=== PATIENT | female | born 1960 | race Caucasian/White ===

== ENCOUNTER 2016-11-06 02:26 | Day surgery (SDC) | payer OTHER ==
[2016-11-06] VITALS (16 sets, daily range): BP systolic 110–128; BP diastolic 45–78; PULSE 65–84; RESP 15–27; O2SAT 94–100
[~2016-11-06] VITALS: Ht 175.3 cm; Wt 65.5 kg
[~2016-11-06 02:26] MED LIST: ASPI-973 PO; CHOL200047 PO; DILT-17 PO; ESTR1PAT82 TRANSDERM; METO25TA99 PO; MULT-1018 PO; OMEG-38 PO
[2016-11-06] MEDS ORDERED: Phenylephrine/NS 100 mCg/mL 10 mL Syringe IVPUSH ONE (02:27)
[2016-11-06] MEDS ORDERED: Dexamethasone 4 mg/mL Inj ONE (02:27)
[2016-11-06] MEDS ORDERED: Neostigmine 1 mg/mL 10 mL Inj ONE (02:27)
[2016-11-06] MEDS ORDERED: Rocuronium 10 mg/mL 5 mL Inj ONE (02:27)
[2016-11-06] MEDS ORDERED: Protamine Sulfate 10 mg/mL 5 mL Inj ONE ×2 (02:27→10:49)
[2016-11-06] MEDS ORDERED: Glycopyrrolate 0.2 MG/ML 1mL Inj ONE (02:27)
[2016-11-06] MEDS ORDERED: MetoCLOpramide 5 mg/mL 2 mL Inj ONE (02:27)
[2016-11-06] MEDS ORDERED: EPHEDrine/NS 5 mg/mL 5 mL Syringe ONE (02:27)
[2016-11-06] MEDS ORDERED: Lidocaine PF 1% 30 mL Inj ONE (02:27)
[2016-11-06 06:37] LABS: BASOPHILS % (AUTO) 0.8 % (0-3); EOSINOPHILS % (AUTO) 2.3 % (0-5); MONOCYTES % (AUTO) 9.3 % (4-12); Mean Corpuscular Hemoglobin 30.9 pg (27.0-35.0); Mean Corpuscular Volume 89.1 fL (81-100); NEUTROPHILS % (AUTO) 51.3 % (40-74); Platelet Count 209 bil/L (150-400)
[2016-11-06 06:54] LABS: INR 1.03 ratio
--- NOTE | 2016-11-06 06:54 | NUR ---
Patient admitted for MELISSA/ atrial fib ablation under general anesthesia. Pre/ post procedure expectations and recovery explained to patient and spouse.She is accompanied by her .
[2016-11-06] MEDS ORDERED: RIVA20TA PO (07:10)
[2016-11-06] MEDS: 0.9% Sodium Chloride 1,000 ML IV SCH ×3 (07:27→21:53)
[2016-11-06] MEDS ORDERED: 0.9% Sodium Chloride 1,000 ML IV ONE (07:30)
[2016-11-06] MEDS ORDERED: Heparin 25,000 Unit/500 mL 0.45% NS Premix IV ONE (07:41)
[2016-11-06] MEDS ORDERED: Heparin 1,000 Unit/mL 10 mL Inj ONE (07:41)
--- NOTE | 2016-11-06 07:41 | PCM.HPANE ---
Patient Data Date of Service: Nov 06, 2016 Surgeon Admitting Provider: Attending Provider:Javid Noguera MD Primary Care Physician:Joey Drake MD Other Provider:Luis Fernando Newberry Anesthesia Reason for Visit Paroxysmal A-Fib Ht/WT & BMI Height (Feet): 5 Height (Inches): 9.50 Weight (Kilograms): 64.600 Body Mass Index 20.62 Allergies Coded Allergies: morphine (Verified Allergy, Intermediate, Rash,Itching,, 11/06/16) Past Anesthesia History Anesthesia History: Denies:: Abnormal Airway, Anesthesia Reactions, Difficult Intubation, Fam Anesthesia Reaction, Malignant Hyperthermia Diabetes History Hx Diabetes?: No MRSA MRSA: No Medications Hypertension Medication: Yes Home Meds Incl Beta Jazzmine: Yes Date Beta Jazzmine Taken: Nov 05, 2016 Previous Beta Jazzmine Dose >24: Previous Dose <24 Hours Reported Medications Rivaroxaban (Xarelto)20 Mg [id number] Mg PO QPM 11/06/16 Cholecalciferol (Vitamin D3) (Vitamin D3)2,000 Unit Capsule2,000 Unit PO DAILY 11/05/16 Multivitamin (Multi Vitamin Daily)1 Each Tablet1 Each PO DAILY 30 Days Ref 0 11/05/16 Metoprolol Succinate ER 25 Mg Tab.er.24h25 Mg PO QPM Ref 0 11/05/16 [place]-3/Dha/Epa/Fish Oil (Fish Oil 1,000 mg Softgel)1 Each Capsule1 Each PO DAILY 11/05/16 Estradiol 0.1 mg/24 hr Patch 1 Each Patch.tdwk1 Patch TRANSDERM 2x weekly Ref 0 patient takes friday/11/05/16 Discontinued Reported Medications Diltiazem ER 120 Mg Cap.er.[id number] Mg PO DAILY Ref 0 11/05/16 Aspirin 81 Mg Obnywx62 Mg PO DAILY Ref 0 11/05/16 History History of ENT Problems?: No Hx of Heart Problems?: Yes Cardiovascular History: Positive for:: Irregular Heartbeat (atrial fibrillation/paroxysmal) Denies:: Chest Pain Peripheral Vascular Valvular Heart Disease Hx of Respiratory Problem?: Yes Respiratory History: Positive for:: Dyspnea (when in atrial fib) Hx Neurologic Problems?: No Hx of GI Problems?: No Hx Musculoskeletal Problems?: No Hx of Psycho/Social Problems?: No Hx Surgeries?: Yes (multiple abdominal surgeries, colon resection) Hx Any Other Health Problems?: No Other History: Positive for:: Hospitalization History Blood Transfusions: Positive for:: Accept Blood Products? Blood Transfusions (1980) Denies:: Blood Transfuse Reaction Hx Alcohol Use: Yes (occassional)Hx Substance Use: No Stop/Bang Treated for Sleep Apnea?: No Do You Have a CPAP Machine?: No S-Snoring: Do You Snore Loudly: No T-Tired: feel tired, fatigued: No O-Obsered: Observed not breath: No P-Blood Pressure: treated: No B- Body Mass Index > 35 kg/m2: No A- Age over 50: Yes N- Neck Large Circumference: No G- Gender Male: No LYUBOV Risk Assessment: Low Risk, <3 Yes Risk Assessment Category Category 1A: Patient has history of documented sleep apnea, and HAS NOT received any narcotic, sedative or anesthesia administration during this stay. Category 1B: Patient has history of documented sleep apnea, and HAS received any narcotic , sedative or anesthesia administration during this stay Category 2: Patient has SUSPECTED Obstructive Sleep Apnea, and HAS received any narcotic , sedative or anesthesia administration during this stay. Category 3: Patient has SUSPECTED Obstructive Sleep Apnea and HAS NOT received narcotic, sedative or anesthesia administration during this stay. Category 4: Outpatient in Procedural Areas with known sleep apnea or who screen positive for High Risk via the STOP/BANG questionnaire. Exam Exam Vital Signs Vital Signs Date Time Temp Pulse Resp B/P Pulse Ox O2 Delivery O2 Flow Rate FiO2 11/06/16 06:44 36.5 65 27 114/72 97 Room Air General Appearance: Alert, Oriented X3, Cooperative, No Acute Distress HEENT/AIRWAY: MP 1 Lungs: Clear to Auscultation, Normal Air Movement Heart: Exam Unremarkable, Regular Rate/Rhythm, No Murmurs/Rubs/Gallops Meds/Labs/Diagnostics Labs Test 11/06/16 06:30 White Blood Count 3.9th/mm3 (3.8-10.1) Red Blood Count 4.85mil/mm3 (3.90-5.20) Hemoglobin 15.0g/dL (12.0-15.6) Hematocrit 43.2% (35.0-46.0) Mean Corpuscular Volume 89.1fL (81-100) Mean Corpuscular Hemoglobin 30.9pg (27.0-35.0) Mean Corpuscular Hemoglobin Concent 34.7% (32.0-37.0) Red Cell Distribution Width 12.4% (12.3-15.4) Platelet Count 209bil/L (150-400) Neutrophils (%) (Auto) 51.3% (40-74) Lymphocytes (%) (Auto) 36.0% (14-46) Monocytes (%) (Auto) 9.3% (4-12) Eosinophils (%) (Auto) 2.3% (0-5) Basophils (%) (Auto) 0.8% (0-3) Prothrombin Time 11.0sec (8.1-12.5) Prothromb Time International Ratio 1.03ratio Sodium Level 139mEq/L (134-144) Potassium Level 3.9mEq/L (3.5-5.2) Chloride Level 102mEq/L (97-108) Carbon Dioxide Level 23mmol/L (18-29) Blood Urea Nitrogen 14mg/dL (6-24) Creatinine 0.60mg/dL (0.57-1.00) Estimat Glomerular Filtration Rate 147mL/min (>59) Glucose Level 99mg/dL (60-99) Calcium Level 8.6mg/dL (8.5-10.1) Plan Impression Patient chart reviewed, patient interviewed and anesthestic plan with risks, benefits, and alternatives discussed, and informed consent obtained. NPO Status: Appropriate ASA Physical Status: ASA2 Mod Systemic Disease Anesthetic Support Modalities: Arterial Line Anesthetic Plan: GA Bene/Risks/Altern/Consents: Yes HP Complete Prior to Induction: Yes Allan Lozano MD Nov 06, 2016 07:41
[2016-11-06] MEDS ORDERED: 0.9% Sodium Chloride 1,000 ML ONE (07:44)
[2016-11-06] MEDS ORDERED: Lactated Ringer's 1,000 ML IV ONE (08:03)
[2016-11-06] MEDS ORDERED: Heparin 5,000 Units/500 mL NS Premix IV ONE (08:54)
[2016-11-06] MEDS ORDERED: Ondansetron 2 mg/mL 2 mL Inj IVPUSH PRN ×2 (11:10→11:30)
[2016-11-06] MEDS ORDERED: Lactated Ringer's 1,000 ML IV SCH (11:30)
[2016-11-06] MEDS ORDERED: EPHEDrine Sulfate 50 mg/mL Inj IM PRN (11:30)
[2016-11-06] MEDS ORDERED: Lactated Ringer's 500 ML IV PRN (11:30)
[2016-11-06] MEDS ORDERED: Atropine 0.4 mg/mL Inj IVPUSH PRN (11:30)
[2016-11-06] MEDS ORDERED: EPHEDrine Sulfate 50 mg/mL Inj IVPUSH PRN (11:30)
[2016-11-06] MEDS ORDERED: hydrALAZINE 20 mg/mL Inj IVPUSH PRN (11:30)
[2016-11-06] MEDS ORDERED: HYDROmorphone 1 mg/mL Inj IVPUSH PRN (11:30)
[2016-11-06] MEDS ORDERED: fentaNYL-PF 50 mCg/mL 2 mL Inj IVPUSH PRN (11:30)
[2016-11-06] MEDS ORDERED: Phenylephrine 10,000 mCg/mL Inj IVPUSH PRN (11:30)
[2016-11-06] MEDS ORDERED: Labetalol 5 mg/mL 4 mL Inj IV PRN (11:30)
--- NOTE | 2016-11-06 14:38 | PROCED ---
[address] [address] PROCEDURE NOTE PATIENT: WILEY SY : 1960 MR#: [id number] ADMIT: 11/06/2016 JOB ID: [id number] DATE OF SERVICE: 11/06/2016 PREOPERATIVE DIAGNOSIS(ES): Paroxysmal drug refractory atrial fibrillation. POSTOPERATIVE DIAGNOSIS(ES): Paroxysmal drug refractory atrial fibrillation. PROCEDURES PERFORMED: 1. Comprehensive electrophysiology study. 2. Three-dimensional electroanatomical mapping using the CARTO 3 system. 3. Transseptal puncture x2. 4. Intracardiac echocardiography. 5. Atrial fibrillation ablation with pulmonary vein isolation. 6. Barium esophagogram. 7. Fluoroscopy. SURGEON: Javid Noguera MD, electrophysiology attending. ASSISTANTS: 1. Trever Cedeno. 2. Nicole Martines. ANESTHESIA: General endotracheal anesthesia was undertaken for this case. INDICATION: The patient is a pleasant 56-year-old woman with drug refractory paroxysmal highly symptomatic atrial fibrillation. After discussion of risks and benefits of catheter-based mapping ablation, she opted to proceed. PROCEDURAL DESCRIPTION: Following informed signed consent, the patient was taken to the EP laboratory in a fasting, nonsedated state where she was prepped and draped in the usual sterile fashion. She underwent a preprocedural transesophageal echocardiogram by Dr. Villarreal, confirming lack of intracardiac thrombus. Please see separate dictated report for the details of that procedure. The bilateral groins were infiltrated with 1% lidocaine. Then, using modified Seldinger technique, two 8-Irish sheaths were inserted in the right femoral vein, a 7 and a 10-Irish sheaths were inserted in the left femoral vein. Under fluoroscopic guidance, a deflectable decapolar catheter was advanced to the coronary sinus with the most proximal bipoles at the os of the sinus. An intracardiac echocardiography probe was advanced to the RV outflow tract and used to visualize the pericardial space. No effusion was noted. The ICE probe was pulled back into the right atrium and used to visualize the interatrial septum and assistance with transseptal puncture. Two transseptal punctures were performed in an identical fashion. Each of the short 8-Irish sheaths were exchanged over a long wire for a Colovore sheath dilator and Leonila Brockenbrough needle. The entire system was used to engage the interatrial septum. Then, under fluoroscopic pressure and ICE guidance, the septum was traversed twice to deploy the two Miller sheaths into the left atrium. The patient was heparinized for a goal ACT of 350 to 400 seconds following the first and preceding with second transseptal puncture. A resurvey of the pericardial space showed no evidence of effusion. Through the two Miller sheaths, an F curve irrigated SmartTouch ablation catheter was passed, as was a 20-pole PentaRay catheter. A three-dimensional electroanatomical mapping of the left atrium and pulmonary veins was created. The patient has a common left pulmonary vein and two separate ostia for the right-sided pulmonary veins. A barium esophagogram was performed and showed the esophagus coursed closest to the posterior aspect of the left common pulmonary vein. The pulmonary veins were then isolated for entrance and exit block. We started with the left common pulmonary vein and used low-wattage, short-duration osborne along the posterior aspect of this and ultimately, entrance and exit block was confirmed in this vein. I then moved on to the right upper and right lower pulmonary veins, achieving block in all three. We disengaged from the left atrium, reversed the patient's heparin with protamine, resurveyed the pericardial space and showed no evidence of effusion. During the course of this study, we did complete a comprehensive electrophysiology study with right atrial pacing recording, right ventricular pacing recording, His bundle recording and left atrial pacing recording. Once the patient's heparin was reversed, all catheters and sheaths were removed. Manual pressure was held for hemostasis. The patient was transferred to the [facility] for monitoring and bedrest. COMPLICATIONS: None. ESTIMATED BLOOD LOSS: 10 cc. FINDINGS: 1. Baseline rhythm is sinus with an RR interval of 832 msec, NC 135 msec, QRS 73 msec, QT 416 msec. 2. Intracardiac intervals: AH interval 67 msec, HV 42 msec. 3. Retrograde conduction: Atrial activation is concentric. VA Wenckebach is seen at 420 msec. 4. Pulmonary vein isolation with entrance and exit block as described above. IMPRESSION: Successful pulmonary vein isolation procedure for drug refractory paroxysmal atrial fibrillation. PLAN: 1. Bedrest x 4 hours. 2. Monitoring overnight. 3. Protonix 40 mg p.o. daily x1 month. 4. Initiate flecainide 50 mg p.o. b.i.d. 5. Continue with metoprolol. 6. Resume Xarelto immediately in the postop area. ATTENDING STATEMENT: Javid Noguera MD, electrophysiology attending, was present for and supervised/performed all aspects of this procedure.
--- NOTE | 2016-11-06 15:26 | NUR ---
Patient off bedrest, andersen catheter removed, pt ambulatory in her room, encouraged to ambulate hallway.
--- NOTE | 2016-11-06 16:04 | NUR ---
Bilateral groin access sites without bleeding or hematoma, bandaids intact.Repot to Luis Enrique Patton R.N. who will be assuming care of patient until she is ready for transfer to a room on the PCC unit.
--- NOTE | 2016-11-06 16:58 | PCM.ANEP1 ---
Post Anesthesia Phase 1 PACU Phase 1 Assessment Date of Service: Nov 06, 2016 Vital Signs Vital Signs Date Time Temp Pulse Resp B/P Pulse Ox O2 Delivery O2 Flow Rate FiO2 11/06/16 15:00 82 17 126/70 Room Air 11/06/16 14:30 Room Air 11/06/16 14:00 84 19 128/75 Room Air 11/06/16 13:30 75 19 125/58 98 Room Air 11/06/16 13:00 72 18 125/74 99 Room Air 11/06/16 12:30 69 15 124/77 100 Room Air 11/06/16 12:15 69 15 122/73 99 Room Air 11/06/16 12:00 69 18 126/66 99 Room Air 11/06/16 11:45 73 17 124/71 99 Room Air 11/06/16 11:40 71 17 116/74 99 Room Air 11/06/16 11:35 71 17 116/74 99 Room Air 11/06/16 11:30 71 18 120/45 99 Room Air 11/06/16 11:30 36.4 Anesthetic Administered: GA Level of Alertness: Awake, talking OH's with Equal Strength: Yes Pain: No Nausea or Vomiting: No Oxygen Delivery: Room Air Lungs: Clear to Auscultation, Normal Air Movement Dermatome Level: Full Sensation Allan Lozano MD Nov 06, 2016 16:58
--- NOTE | 2016-11-06 16:59 | PCM.ANEP2 ---
Post Anesthesia Evaluation ASA/CMS Post Anesthesia Date of Service: Nov 06, 2016 VS in Patient's Normal Range?: Yes Resp Stable; Airway Patent?: Yes CV Function & Hydration Stable: Yes Mental Status Recovered?: Yes Pain control Satisfactory?: Yes N/V Control Satisfactory?: Yes Allan Lozano MD Nov 06, 2016 16:59
--- NOTE | 2016-11-06 19:26 | NUR ---
Arrival to unit/Groin sites NO reports of chest pain/pressure/discomfort -- successful AFIB ablation, currently SR 80s. BP within normal limits. Distal pulses palpable.No reports of SOB/dizziness. SPO2 high 90s on RA. Denies cough. No reports of n/v/d/c or abdominal pain. Kumar DC'd in JOSE, patient has voided x2 since removal without complication, up to BR independently. Patient alert and oriented x3, OH, reports full sensation, steady gait, up independently in room. Bilateral groin sites C/D/I, no pain, no hematoma or oozing.
[2016-11-06] MEDS ORDERED: MeTOProlol XL 25 mg ER24 Tablet PO SCH (21:00)
[2016-11-07 03:13] VITALS: BP 109/59; PULSE 74; RESP 18; O2SAT 97
[2016-11-07 03:34] VITALS: PULSE 77
[2016-11-07] MEDS ORDERED: Pantoprazole 40 mg ER24 Tablet PO SCH (06:30)
--- NOTE | 2016-11-07 06:44 | NUR ---
Tele/Restful Night Pt tele SR 60s-80s tonight, no reports of chest pain/palpitations/dizziness. Pt took first dose of flecainide and denied any symptoms, also given small packet with information on this medication. Overall pt requested ear plugs and appeared to sleep comfortably between care interventions. Pt requested ibuprofen x2 for slight throat pain w/ good effect. Pt was also offered hot tea to soothe throat. Bilateral groin sites have no signs of hematoma, pedal pulses palpable.
[2016-11-07 08:00] VITALS: PULSE 69
--- NOTE | 2016-11-07 08:22 | PCM.DIMED ---
Discharge Instructions Date of Service Nov 07, 2016 Dates of Hospitalization Discharge Diagnosis Discharge Diagnosis Atrial Fibrillation with Rapid Ventricular Response Diet Heart Healthy Activity Other (To prevent infection, do not sit in a bath tub, hot tub or pool for 1 week. To prevent bleeding, do not lift or push more than 10 lbs for 1 week.) Call your provider Fever or Chills, Bleeding, Excessive diarrhea, Weakness (unilateral) Patient Instructions Mid-level Provider (F9): Jairo Kang PA-C Follow-up with Mid-level in: 4 weeks (Appt. at [facility] Cardiology in [place] on 12-06-16 at 10:50 AM (arrival time).) Jairo Kang PA-C Nov 07, 2016 08:22
[2016-11-07] MEDS ORDERED: FLC50T PO (08:35)
[2016-11-07] MEDS ORDERED: PANT40TA3 PO (08:35)
[2016-11-07 08:36] VITALS: BP 112/71; PULSE 69; RESP 16; O2SAT 99
--- NOTE | 2016-11-07 10:27 | NUR ---
Discharge Patient ambulated off unit with and all personal belongings in a stable condition. IV DC'd intact, tele removed. New medications of Protonix and Flecainide discussed with possible side effects and next due times--patient verbalized understanding. All other medications continued with their next due times discussed. Patient remained in normal SR since ablation, bilateral groin sites have very minimal bruising with no signs of hematoma, no drainage. Discussed no bath tub/hot tub/pool or pushing/pulling/lifting more than 10 lbs for one week -- verbalized understanding. Follow up with cardiology scheduled.
--- NOTE | 2016-11-07 18:05 | DRSVH ---
[facility] [address] [place] [place] [address] Echocardiogram Report Name: WILEY SY Fabio e: 11/06/2016 Hospital Exam Location: [facility] Gender: Female : 1960 Age: 56 yrs Reason For Study: Atrial fibrillation - paroxysmal Ordering Physician: Javid Noguera Performed By: Nina Carlton Interpretation Summary 1. No thrombus appreciated in the sampled segments of the left atrium or left atrial appendage. 2. No evidence for significant valvular pathology Procedure: Informed consent for Transesophageal Echocardiogram, and use of a contrast agent as needed, was obtained prior to the procedure. The patient was brought to the cardiac catheterization lab in a fasting state. Sedation was managed by anesthesiologist; see anesthesiology notes for details. A multifrequency, multiplane transesopheageal echocardiographic endoscope was inserted and manipulated in the standard fashion to achieve multiplane views. The transesophageal probe was passed without difficulty. The patient tolerated the procedure well without evidence of orophangeal or esophageal trauma. The patient's vital signs, including blood pressure, heart rate, pulse oximetry and cardiac rhythm were monitored throughout the procedure and remained stable. The patient was in normal sinus rhythm during the exam. There were no complications. Atria: No thormbus appreciated in the sampled segments of the left atrium of left atrial appendage. No color doppler evidence for an ASD. Mitral Valve: The mitral valve is normal in structure and function. There is mild mitral regurgitation. Aortic Valve: The aortic valve is trileaflet. The aortic valve opens well. There is trace aortic regurgitation. Tricuspid Valve: The tricuspid valve leaflets are thin and pliable. There is mild tricuspid regurgitation. Reading Physician:06:05 PM
--- NOTE | 2016-11-07 22:38 | DIS ---
[address] [address] DISCHARGE SUMMARY PATIENT: WILEY SY : 1960 MR#: [id number] ADMIT: 11/06/2016 JOB ID: [id number] DIS: 11/07/2016 REASON FOR ADMISSION: Atrial fibrillation ablation procedure. CHIEF COMPLAINT: Palpitations and rapid heartbeat. BRIEF HISTORY: The patient is a very pleasant, 56-year-old woman with a history of atrial fibrillation and hyperlipidemia who has been experiencing palpitations from atrial fibrillation for a couple of years now. She has episodes about every week and may have lasted up to 10-14 hours. Documentation of rhythms by a long-term ECG recording showed maximum heart rates up to 205 BPM. 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 She then had a MELISSA which showed no left atrial thrombus. The atrial fibrillation ablation procedure was then undertaken and completed without incident. The femoral sheaths were removed, hemostasis was obtained, and she was awakened from anesthesia. She was taken back to the [facility] for further recovery and then transferred to the [facility] for overnight telemetry and care. She did well overnight and had no bleeding from the puncture sites. The Kumar catheter was removed and she was able to void normally. She has been ambulatory without bleeding and denies any chest pain or shortness of breath. Vital signs have been stable, and her only complaint is of throat irritation from the instrumentation yesterday. She felt well for discharge home. DISPOSITION: The patient was discharged home in good condition with a followup appointment at the [facility] Cardiology office in one month. To prevent bleeding, she was asked not to lift, push, or pull more than 10 pounds for one week; and to prevent infection, she was asked not to sit in a hot tub, bathtub, or pool for one week. She will follow her heart healthy diet and take medications as prescribed. DISCHARGE MEDICATIONS: 1. Flecainide 50 mg b.i.d. 2. Pantoprazole 40 mg daily for one month. 3. Vitamin D3, 2000 units daily. 4. Estradiol 0.1 mg per 24 hour patch 2 times weekly. 5. Metoprolol succinate 25 mg each evening. 6. Multivitamin daily. 7. [place]-3 fish oil soft gel 1 daily. 8. Rivaroxaban 20 mg q.p.m. FINAL DIAGNOSES: 1. Paroxysmal atrial fibrillation with rapid response and palpitations. 2. Hyperlipidemia.
== END 2016-11-07 10:05 | disposition home or self-care (01) ==
LOC: SOUO 02:26 → PCC 17:03 → SOUO 11-07 10:05
PROVIDERS: ATTEND Internal Medicine Cardiovascular Disease
DX: I48.0 Paroxysmal atrial fibrillation (principal); Z79.01 Long term (current) use of anticoagulants; M08.00 Unspecified juvenile rheumatoid arthritis of unspecified site; I35.1 Nonrheumatic aortic (valve) insufficiency; I47.1 Supraventricular tachycardia; Z79.82 Long term (current) use of aspirin; E78.5 Hyperlipidemia, unspecified; Z79.899 Other long term (current) drug therapy
CPT/HCPCS: 36415; 80048; 85025; 85610; 93005; 93613; 93656; 93662; C1730; C1732; C1759; C1769; C1894; C8925; J1100; J1200; J1644; J2370; J2710; J2720; J2765; J7040